=== PATIENT | female | born 1995 | race African-American/Black ===

== ENCOUNTER 2019-12-18 17:17 | Emergency (ER) | payer OTHER ==
[~2019-12-18] VITALS: Ht 167.6 cm; Wt 68.2 kg
[2019-12-18] MEDS ORDERED: ACETAMINOPHEN 325 MG TABLET PO ONE (18:45)
[2019-12-18 19:26] LABS: BASOPHILS % (AUTO) 0.1 % (0.0-2.0); EOSINOPHILS % (AUTO) 0 % (1.0-6.0); HEMATOCRIT 35.8 % (36-46); HEMOGLOBIN 11.4 g/dL (12.0-16.0); LYMPHOCYTES # (AUTO) 0.9 K/uL (1.0-4.8); LYMPHOCYTES % (AUTO) 13.4 % (22.0-44.0); MEAN CORPUSCULAR HEMOGLOBIN 23.8 pg (26.0-34.0); MEAN CORPUSCULAR HGB CONC 31.8 G/dL (31.0-37.0); MEAN CORPUSCULAR VOLUME 75 fL (80-100); MONOCYTES # (AUTO) 0.5 K/uL (0.1-1.0); MONOCYTES % (AUTO) 7.7 % (2.0-9.0); NEUTROPHILS # (AUTO) 5.1 K/uL (1.8-7.7); NEUTROPHILS % (AUTO) 78.8 % (40.0-70.0); PLATELET COUNT (AUTO) 272 K/uL (150-450); RED BLOOD CELL COUNT(AUTO) 4.78 MIL/uL (4.00-5.20); RED CELL DISTRIBUTION WIDTH 17.2 % (11.5-14.5)
[2019-12-18 19:36] LABS: ANION GAP 9 mmol/L (8-16); CALCIUM, TOTAL 9.1 mg/dL (8.8-10.5); CARBON DIOXIDE 23 mmol/L (22-29); CHLORIDE 103 mmol/L (98-107); CREATININE 0.86 mg/dL (0.60-1.30); GLOMERULAR FILTR. RATE CALC > 60 mL/min (>60); GLUCOSE,RANDOM 91 mg/dL (70-110); POTASSIUM 3.3 mmol/L (3.5-5.1); SODIUM SERUM 135 mmol/L (136-145); UREA NITROGEN, BLOOD 9 mg/dL (7-18)
[2019-12-18 19:50] LABS: COVID AG,FIA SOURCE NASOPHARYNGEAL
[2019-12-18 20:09] LABS: ALANINE AMINOTRANSFERASE 20 U/L (12-78); ALKALINE PHOSPHATASE 73 U/L (46-116); ASPARTATE AMINOTRANSFERASE 22 U/L (15-37); BILIRUBIN,TOTAL 0.2 mg/dL (0.1-1.0); HCG,QUANTITATIVE < 1 mIU/mL (0-6)
[2019-12-18] MEDS ORDERED: KETOROLAC TROMETHAMINE 30 MG/ML VIAL IVP ONE (20:30)
[2019-12-18] MEDS ORDERED: SODIUM CHLORIDE 0.9% 1,000 ML IV ONE (20:45)
[2019-12-18] MEDS ORDERED: IOVERSOL 320 MG/ML 100 ML VIAL ONE (21:06)
[2019-12-18] MEDS ORDERED: SODIUM CHLORIDE 0.9% 100 ML ONE (21:06)
[2019-12-18 23:03] VITALS: BP 131/76
== END 2019-12-18 23:11 | disposition home or self-care (01) ==
LOC: EMS 17:20
DX: J18.9 Pneumonia, unspecified organism (principal); R51.9 Headache, unspecified; Z20.828 Contact with and (suspected) exposure to other viral communicable diseases
CPT/HCPCS: 36415; 71045; 71275; 80053; 84702; 85025; 85379; 87426; 93005; 96361; 96374; 99285; J1885; J7030; J7050; Q9967

== ENCOUNTER 2022-04-12 16:15 | Emergency (ER) | payer OTHER ==
[~2022-04-12] VITALS: Ht 165.1 cm; Wt 90.9 kg
[~2022-04-12 16:15] MED LIST: APIX2.5T PO; DEXA6TAB7 PO
[2022-04-12 16:19] VITALS: BP 126/89
[2022-04-12 16:22] LABS: COVID AG,FIA SOURCE NASAL SWAB
[2022-04-12 16:44] LABS: INFLUENZA TYPE A NEGATIVE FOR TYPE A (NEGATIVE); INFLUENZA TYPE B NEGATIVE FOR TYPE B (NEGATIVE)
== END 2022-04-12 17:03 | disposition home or self-care (01) ==
LOC: EMS 16:19
DX: U07.1 COVID-19 (principal)
CPT/HCPCS: 87804; 99283

== ENCOUNTER 2022-04-16 11:32 | Emergency (ER) | payer OTHER ==
[~2022-04-16] VITALS: Ht 157.5 cm; Wt 118.2 kg
[2022-04-16 11:37] VITALS: BP 118/61
[2022-04-16 12:49] LABS: COVID AG,FIA SOURCE NASAL SWAB
== END 2022-04-16 13:52 | disposition home or self-care (01) ==
LOC: EMS 11:34
DX: Z01.84 Encounter for antibody response examination (principal); Z86.16 Personal history of COVID-19; Z20.822 Contact with and (suspected) exposure to COVID-19
CPT/HCPCS: 99283

== ENCOUNTER 2024-11-03 08:50 | Emergency (ER) | payer OTHER ==
[~2024-11-03] VITALS: Ht 157.5 cm; Wt 118.2 kg
[2024-11-03 08:55] VITALS: TEMP 97.3
[2024-11-03] MEDS ORDERED: FLUORESCEIN SODIUM 1 MG STRIP ONE (12:00)
[2024-11-03] MEDS: PROPARACAINE HCL 0.5% 15 ML OPHTHALMIC SOLUTION OS ONE (12:05)
[2024-11-03] MEDS ORDERED: CIPOTIC AS (13:07)
[2024-11-03] MEDS ORDERED: ERYT3.5O8 OS (13:21)
[2024-11-03 13:27] VITALS: BP 114/90; PULSE 74; RESP 18; O2SAT 100
== END 2024-11-03 13:45 | disposition home or self-care (01) ==
LOC: EMS 08:50
DX: S05.02XA Injury of conjunctiva and corneal abrasion without foreign body, left eye, initial encounter (principal); Y04.0XXA Assault by unarmed brawl or fight, initial encounter; Y93.89 Activity, other specified; Y92.89 Other specified places as the place of occurrence of the external cause; Y99.8 Other external cause status
CPT/HCPCS: 99283